=== PATIENT | male | born 1965 | race Caucasian/White ===

== ENCOUNTER 2016-08-25 19:31 | Observation (INO) | payer BC ==
--- NOTE | ~2016-08-25 | CN ---
Consultation Report [facility] [address] [place]. [address] NAME: GARCIA TANNER : 65 STATUS : ADM Curtis PAT#: [id number] AGE: 51 ADM/REG DATE : 08/25/16 MR#: [id number] REPORT SERV DATE: 08/26/16 DICTATED BY: XU LEVY DATE: 08/26/16 REPORT STATUS : Draft TRANSCRIBED BY: MODL DATE: 08/26/16 CARDIOLOGY CONSULTATION DATE OF CONSULTATION: 08/26/2016 INDICATIONS: Atypical atrial flutter. HISTORY OF PRESENT ILLNESS: Garcia Tanner is a very pleasant, 51-year-old man, well known to me from office practice. He has a complex history with previous ablation for atrial fibrillation, as well as ablation for atypical atrial flutter, as well as tank terminalis tachycardia. He has had some intermittent episodes of arrhythmia but overall has had reasonably good control of his arrhythmia with flecainide 100 mg twice a day. He was sick in July with the flu. He unfortunately developed the flu again, had fevers, respiratory symptoms, and was seen by his primary provider, noted to be in atrial flutter with RVR and sent to the emergency room. He was admitted to the Hospitalist Service overnight, found to have low potassium and tested positive for flu B, he is treated with Tamiflu. He was given amiodarone overnight and converted to sinus rhythm. He is stable this morning. He feels better. He has defervesced and is without focal complaints. No chest pains. No shortness of breath. No syncope. From flu standpoint, he is better. PAST MEDICAL HISTORY: Asthma, complex atrial arrhythmias including atrial tachycardia, persistent atrial fibrillation, atypical atrial flutter. Does have a background of sinus node dysfunction, which limited beta lorna or calcium lorna therapy. HOME MEDICATIONS: Albuterol, aspirin, flecainide, Motrin, Centrum, and Singulair. ALLERGIES: NONE KNOWN. SOCIAL HISTORY: No smoking. FAMILY HISTORY: Reviewed and noncontributory. REVIEW OF SYSTEMS: As per the HPI. Otherwise, all other review of systems is negative. PHYSICAL EXAMINATION: VITAL SIGNS: Blood pressure is 100/58, pulse is 57, and respiratory rate is 18. GENERAL: Appears stated age, no distress. EYES: Sclerae anicteric, no arcus senilis. MOUTH: Oral mucosa moist, lips acyanotic. NECK: Jugular venous pressure normal, no carotid bruits. Consultation Report [address] [place]. [address] NAME: GARCIA TANNER : 65 STATUS : ADM Curtis PAT#: [id number] AGE: 51 ADM/REG DATE : 08/25/16 MR#: [id number] REPORT SERV DATE: 08/26/16 DICTATED BY: XU LEVY DATE: 08/26/16 REPORT STATUS : Draft TRANSCRIBED BY: SHAHRAM DATE: 08/26/16 LUNGS: Clear to auscultation bilaterally, normal inspiratory effort. CARDIAC: Regular rate and rhythm, no murmurs, gallops or rubs. ABDOMEN: Soft, nondistended, nontender. EXTREMITIES: No edema. SKIN: Warm and dry. NEURO/PSYCH: Alert and oriented, nonfocal, mood appropriate. LABORATORY AND DIAGNOSTIC STUDIES: Telemetry is sinus rhythm. ECG on presentation is atypical atrial flutter. Ventricular response of 129 beats per minute. QRS duration 90 milliseconds. Data; initial potassium 3.3, repeated at 3.8 after repletion, creatinine 1.01, hemoglobin 13.7, magnesium is 2.1. Chest x-ray reported as no acute process. IMPRESSION: 1. Atypical flutter, now resolved. 2. Flu. RECOMMENDATIONS: The patient is now sinus rhythm. Discontinue IV heparin. Discontinue amiodarone. The patient's [id number] VASc score is low. Continue flecainide. May be discharged to home today. He has a followup in September. He will keep that appointment. Discussed with the patient, , and nurse. All questions answered. CAS/SHAHRAM Xu Levy M.D. / [id number] CC: Vira Santos II, M.D.
--- NOTE | ~2016-08-25 | HP ---
History And Physical [id number] [facility] [place]. [address] NAME: GARCIA TANNER : 65 STATUS : ADM Curtis PAT#: [id number] AGE: 51 ADM/REG DATE : 08/25/16 MR#: [id number] REPORT SERV DATE: 08/25/16 DICTATED BY: SHARA MAYES DATE: 08/25/16 REPORT STATUS : Draft TRANSCRIBED BY: MODL DATE: 08/25/16 DATE OF ADMISSION: 08/25/2016 POINT OF ENTRY: [facility] Emergency Department. PRIMARY GROCERY STORE MANAGER: Dr. Levy. CHIEF COMPLAINT: Fever, cough, and palpitations. HISTORY OF PRESENT ILLNESS: Mr. Tanner is a 51-year-old gentleman with history of atrial flutter and atrial fibrillation, status post multiple ablations and currently on flecainide therapy, who presents to emergency department today with multiple complaints including cough, subjective fevers, as well as palpitations. The patient states he was diagnosed with influenza infection about a month ago, completed a course of Tamiflu. Since then, he has had a persistent dry cough that has been nagging him. For the past two days, he has noted that the cough has gotten worse. He noted some subjective fevers as well as chills last night. Over the last week, he has also noted that he has been in and out of rhythm as he can detect his atrial flutter with palpitations and skipping of his heartbeat as well as some vague abnormal sensation in the back of his throat. He saw his primary care physician today as part of a checkup. His strep swab was negative. His PCP notes that he was in a flutter and then was referred to the emergency department. Initial evaluation in the emergency department notable for a fever of 100.5 degrees Fahrenheit, pulse was initially 152, and atrial flutter with variable block. Labs otherwise unremarkable except for a potassium level of 3.3 and influenza swab that was positive for influenza B. Per discussion with Dr. Singh, he was going to be admitted to the Hospitalist Service where he recommended initiation of a heparin as well as an amiodarone infusion for his atrial flutter. COMPREHENSIVE REVIEW OF SYSTEMS: Otherwise negative unless listed in history of present illness. PREVIOUS MEDICAL HISTORY: 1. Atrial fibrillation, atrial flutter, status post multiple ablations, currently on flecainide. 2. Asthma and reactive airway disease. SURGICAL HISTORY: 1. Atrial flutter and atrial fibrillation ablation x3. 2. EP study. ALLERGIES: NO KNOWN DRUG ALLERGIES. History And Physical [address] [address] NAME: GARCIA TANNER : 65 STATUS : ADM Curtis PAT#: [id number] AGE: 51 ADM/REG DATE : 08/25/16 MR#: [id number] REPORT SERV DATE: 08/25/16 DICTATED BY: SHARA MAYES DATE: 08/25/16 REPORT STATUS : Draft TRANSCRIBED BY: SHAHRAM DATE: 08/25/16 HOME MEDICATIONS: 1. Albuterol two puff inhalation p.r.n. 2. Aspirin 325 mg daily. 3. Flecainide 100 mg b.i.d. 4. Ibuprofen 800 mg daily. 5. Singulair 10 mg at bedtime. 6. Centrum multivitamin one tab daily. SOCIAL HISTORY: Denies any tobacco, alcohol, or illicits. 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 FAMILY HISTORY: Mother's history is unknown. Father is , history of coronary artery disease. Siblings history is also unknown. LABS AND IMAGIN. White count 6.1, hemoglobin 15.0, hematocrit 43.1, and platelet count is 159. INR is 1.0. 2. Sodium is 142, potassium 3.2, chloride 106, carbon dioxide 25, BUN 12, creatinine 1.08, glucose is 100, calcium is 9.1, and magnesium is 2.0. 3. Troponin 0.04. 4. Influenza swab is positive for influenza B. 5. Chest x-ray per my review shows no acute cardiopulmonary abnormality. 6. EKG per my review shows atrial flutter with variable block with heart rates in the 120s. PHYSICAL EXAMINATION: VITAL SIGNS: Temperature is 100.5 degrees Fahrenheit, pulse is 152, respirations 26, saturating 100% on room air, and blood pressure 152/84. On recheck, blood pressure is now 106/75. Heart rate of 101, still in atrial flutter with variable block. GENERAL: The patient is awake, alert, in no acute distress. Resting comfortably in bed. He is a well-developed, well-nourished, male. at bedside. HEENT: Atraumatic and normocephalic. Moist mucous membranes. Pupils are equal, round, reactive to light and accommodation. Extraocular eye movements are intact. No scleral icterus. NECK: No jugular venous distention. No carotid bruits. CARDIAC: Irregularly irregular rate and rhythm. No murmurs, rubs, or gallops. Normal S1, normal S2. LUNGS: Clear to auscultation bilaterally. No wheezes, rhonchi, or crackles. ABDOMEN: Soft, nontender, nondistended with good bowel sounds. No rebound, guarding, or rigidity. EXTREMITIES: Warm, perfused. No cyanosis, clubbing, or edema. SKIN: Warm and dry. PSYCH: Affect appropriate. NEURO: Alert and oriented x3. Cranial nerves 2 through 12 grossly intact. Speech is normal. Gait is not assessed. ASSESSMENT: Mr. Tanner is a 51-year-old with a history of atrial fibrillation, atrial flutter, who presents with a few day history of palpitations with associated subjective History And Physical [address] [address] NAME: GARCIA TANNER : 65 STATUS : ADM Curtis PAT#: [id number] AGE: 51 ADM/REG DATE : 08/25/16 MR#: [id number] REPORT SERV DATE: 08/25/16 DICTATED BY: SHARA MAYES DATE: 08/25/16 REPORT STATUS : Draft TRANSCRIBED BY: MODAlfonso DATE: 08/25/16 fevers, chills, and worsening cough, found to have evidence of atrial flutter with RVR as well as influenza B infection. PROBLEM LIST: 1. Influenza B infection. 2. Atrial flutter with rapid ventricular response. 3. Hypokalemia. 4. Persistent cough. PLAN: 1. Atrial flutter with RVR. We will admit the patient to Hospitalist Service. We will consult the patient's primary real estate director, Dr. Levy. Per instructions by Dr. Singh this evening, we will place him on an amiodarone as well as a heparin infusion. We will continue the patient's home flecainide. We will replete the patient's low potassium. 2. Influenza B. provide supportive care with Tamiflu. 3. Persistent cough. Chest x-ray is clear. I suspect this is all likely due to his recurrent influenza infections as well as a known history of reactive airway disease. We will provide supportive care with Ashanti Jimenez as well as Destiney GHOTRA. 4. Hypokalemia. We will provide 40 of potassium chloride here in the emergency department as well as place patient on electrolyte repletion protocol. 5. DVT prophylaxis. The patient is to be on heparin infusion. CODE STATUS: The patient wishes to be full code. JCB/MODL Shara Mayes MD / [id number] CC: Vira Santos NP Gregory Keith Bruce, M.D.
--- NOTE | ~2016-08-25 | DS ---
Discharge Summary [address] [place]. [address] NAME: GARCIA ROYAL : 65 STATUS : DIS Curtis PAT#: [id number] AGE: 51 ADM/REG DATE : 08/25/16 MR#: [id number] REPORT SERV DATE: 08/26/16 DICTATED BY: DATE: REPORT STATUS : Draft TRANSCRIBED BY: MODL DATE: 08/26/16 ADMISSION DATE: 08/25/2016 DISCHARGE DATE: 08/26/2016 DISCHARGE DIAGNOSES: 1. Influenza B. 2. Atrial flutter with RVR. 3. Hypokalemia. 4. Asthma. CONSULTING PHYSICIANS: Include Dr. Levy with [facility]. IMAGING: Includes a portable chest x-ray which demonstrates no acute cardiopulmonary process. For full H and P, please refer to Dr. Melecio Bolaños's dictation on 08/25/2016. Please also see Dr. Levy's consultation dictation on 08/26/2016. HOSPITAL COURSE/PROBLEM LIST: 1. Influenza B. Symptomatic management with cough medicine. We will prescribe the patient Robitussin-AC q.6 hours p.r.n. for cough. If his symptoms get worse or he does not improve, he should follow up with his primary care provider. 2. Air flutter with RVR. The patient has a history of air flutter atrial fibrillation. He is a patient of Dr. Levy. He was placed on an amiodarone drip as well as a heparin drip initially in the emergency department. These have been discontinued. He is currently in sinus rhythm, sinus renetta. Dr. Levy evaluated him and cleared him to be discharged home. He will follow up with Dr. Levy as an outpatient. 3. Hypokalemia. Initially the patient's potassium was 3.3, it is up to 3.8 with repletion. 4. Asthma. We will continue the patient's Singulair. He can follow up with his primary care provider as needed for further management. MILADIS/SHAHRAM Dillan Fulton NP / [id number] CC: David Pimentel M.D. Robb Read II, M.D.
[2016-08-25 18:40] LABS: BASOPHILS 0.5 %; BASOPHILS ABSOLUTE 0.03 10/3/uL (0.0-0.16); EOSINOPHILS 2.1 %; EOSINOPHILS ABSOLUTE 0.13 10/3/uL (0.0-0.53); ER CBC TAT 0 Hrs 15 Mins; HEMATOCRIT 43.1 % (40.0-51.0); IMMATURE GRANULOCYTES 0.2 %; IMMATURE GRANULOCYTES ABSOLUTE 0.01 10/3/uL (0.0-0.11); LYMPHOCYTES 17.5 %; LYMPHOCYTES ABSOLUTE 1.06 10/3/uL (0.67-4.30); MANUAL DIFF NO %; MEAN CORPUS HGB CONC 34.8 g/dL (32.0-36.0); MEAN CORPUSCULAR HEMOGLOB 31.7 pg (26.0-34.0); MEAN CORPUSCULAR VOLUME 91.1 fL (80-100); MEAN PLATELET VOLUME 10.1 fL (9.2-13.0); MONOCYTES 9.6 %; MONOCYTES ABSOLUTE 0.58 10/3/uL (0.21-1.20); NEUTROPHILS 70.1 %; NEUTROPHILS ABSOLUTE 4.25 10/3/uL (2.02-8.40); PLATELET COUNT 159 10/3/uL (150-400); RBC DISTRIBUTION WIDTH 13.3 % (12.0-16.0); RED CELL COUNT 4.73 10/6/uL (4.7-6.1); WHITE BLOOD CELLS 6.1 10/3/uL (4.5-10.5)
[2016-08-25 18:50] LABS: PARTIAL THROMBO TIME 29.2 SEC (22.5-37.2)
[2016-08-25 18:54] LABS: PROTIME (NOT ORD) 13.4 SEC (12.0-14.5)
[2016-08-25 18:59] LABS: BUN (BLOOD UREA NITROGEN) 12 MG/DL (6-23); CALCIUM, SERUM 9.1 MG/DL (8.5-10.4); CHLORIDE, SERUM 106 MMOL/L (96-112); CO2 (CARBON DIOXIDE) 25 MMOL/L (24-34); CREATININE 1.08 MG/DL (0.70-1.30); GFR AFRICAN AMERICAN 92 ML/MIN (>=60); GFR NON AFRICAN AMERICAN 79 ML/MIN (>=60); GLUCOSE, SERUM 100 MG/DL (60-99); POTASSIUM, SERUM 3.3 MMOL/L (3.5-5.3); SODIUM, SERUM 142 MMOL/L (135-148); TROPONIN I 0.04 NG/ML (<0.05)
[2016-08-25 19:00] LABS: CHEST PAIN PROFILE TAT 0 Hrs 34 Mins
[~2016-08-25 19:31] MED LIST: ADVAIR250 INH; C5 PO; DULERA; JANTOVEN6 MG PO; LOP25 PO; LOVENOX60 SC; PROTONIX PO; PROVHFA INH; SUDAFE1 OR; SUDAFED30 MG OR; TAMBO50 PO; TAMBOCOR PO
[2016-08-25 20:30] LABS: INFLUENZA A SCREEN NEGATIVE (NEGATIVE); INFLUENZA B SCREEN POSITIVE (NEGATIVE)
[2016-08-25] MEDS ORDERED: FLECAINIDE100 MG PO (21:04)
[2016-08-25] MEDS ORDERED: CENTRUM PO (21:05)
[2016-08-25] MEDS ORDERED: PROAIR HFA INH (21:05)
[2016-08-25] MEDS ORDERED: IBU800 PO (21:05)
[2016-08-25] MEDS ORDERED: ASABAYER PO (21:05)
[2016-08-25] MEDS ORDERED: SINGULAIR1 PO (21:05)
[2016-08-26 05:42] LABS: BASOPHILS 0.4 %; BASOPHILS ABSOLUTE 0.02 10/3/uL (0.0-0.16); EOSINOPHILS 1.1 %; EOSINOPHILS ABSOLUTE 0.05 10/3/uL (0.0-0.53); HEMOGLOBIN 13.7 g/dL (13.6-17.8); IMMATURE GRANULOCYTES 0.2 %; IMMATURE GRANULOCYTES ABSOLUTE 0.01 10/3/uL (0.0-0.11); LYMPHOCYTES 24.5 %; LYMPHOCYTES ABSOLUTE 1.14 10/3/uL (0.67-4.30); MEAN CORPUS HGB CONC 35.4 g/dL (32.0-36.0); MEAN CORPUSCULAR HEMOGLOB 32.2 pg (26.0-34.0); MEAN CORPUSCULAR VOLUME 90.8 fL (80-100); MEAN PLATELET VOLUME 9.9 fL (9.2-13.0); MONOCYTES 17.4 %; MONOCYTES ABSOLUTE 0.81 10/3/uL (0.21-1.20); NEUTROPHILS 56.4 %; NEUTROPHILS ABSOLUTE 2.63 10/3/uL (2.02-8.40); PLATELET COUNT 135 10/3/uL (150-400); RBC DISTRIBUTION WIDTH 13.5 % (12.0-16.0); RED CELL COUNT 4.26 10/6/uL (4.7-6.1); WHITE BLOOD CELLS 4.7 10/3/uL (4.5-10.5)
[2016-08-26 05:43] LABS: HEMATOCRIT 38.7 % (40.0-51.0); MANUAL DIFF NO %
[2016-08-26 05:52] LABS: BUN (BLOOD UREA NITROGEN) 11 MG/DL (6-23); CALCIUM, SERUM 8.4 MG/DL (8.5-10.4); CHLORIDE, SERUM 109 MMOL/L (96-112); CO2 (CARBON DIOXIDE) 23 MMOL/L (24-34); CREATININE 1.01 MG/DL (0.70-1.30); GFR AFRICAN AMERICAN 99 ML/MIN (>=60); GFR NON AFRICAN AMERICAN 86 ML/MIN (>=60); POTASSIUM, SERUM 3.8 MMOL/L (3.5-5.3); SODIUM, SERUM 142 MMOL/L (135-148)
[2016-08-26 05:53] LABS: GLUCOSE, SERUM 128 MG/DL (60-99)
[2016-08-26 09:58] LABS: ASCORBIC ACID (UR NOT ORDER) NEG (NEG); BILIRUBIN, URINE NEGATIVE (NEG); KETONE, URINE NEGATIVE (NEG); LEUKOCYTE ESTERASE(NOT OR NEG (NEG); WBC (NOT ORDERED) (RFLEX) 1 (0-5)
[2016-08-26 10:20] LABS: FREE T4 0.89 NG/DL (0.76-1.46); ULTRASENSITIVE TSH 0.708 MCIU/ML (0.358-3.740)
[2016-08-26] MEDS ORDERED: TAMIFLU PO (12:44)
[2016-08-26] MEDS ORDERED: GGEXPUD PO (12:45)
== END 2016-08-26 14:16 | disposition home or self-care (01) ==
LOC: ER 19:31 → CDU1 21:45 → CDU2 22:47
PROVIDERS: Emergency Medicine; Internal Medicine
DX: J11.1 Influenza due to unidentified influenza virus with other respiratory manifestations (principal); I48.92 Unspecified atrial flutter; J45.909 Unspecified asthma, uncomplicated; E87.6 Hypokalemia; Z79.82 Long term (current) use of aspirin; Z79.899 Other long term (current) drug therapy; I48.91 Unspecified atrial fibrillation
CPT/HCPCS: 71010; 80048; 81001; 83735; 84439; 84443; 84484; 85025; 85610; 85730; 87804; 93005; 96365; 96372; 96374; 96375; 96376; 99291; A9270-GY; G0378; J0282